=== PATIENT | male | born 1990 | race African-American/Black ===

== ENCOUNTER 2024-11-22 22:10 | Emergency (ER) | payer MEDICAID ==
[~2024-11-22] VITALS: Ht 165.1 cm; Wt 82.0 kg
[2024-11-22 22:40] VITALS: O2SAT 99
[2024-11-22 23:21] LABS: CLARITY URINE CLOUDY (CLEAR); COLOR URINE YELLOW (YELLOW); GLUCOSE URINE NEGATIVE (NEGATIVE); KETONES URINE NEGATIVE (NEGATIVE); LEUKOCYTE ESTERASE URINE 3+ (NEGATIVE); NITRITE URINE NEGATIVE (NEGATIVE); OCCULT BLOOD URINE 3+ (NEGATIVE); PH URINE 6.5 (4.5-8.0); PROTEIN URINE 3+ (NEGATIVE); SPECIFIC GRAVITY URINE 1.004 (1.005-1.030); UROBILINOGEN URINE 0.2 E.U./dL (0.2-1.0)
[2024-11-22 23:37] LABS: WBC URINE TNTC /hpf (0-2)
[2024-11-22 23:38] LABS: BACTERIA URINE 2+; SQUAMOUS EPITHELIAL CELL URINE NONE SEEN /lpf (RARE/1+)
[2024-11-23] MEDS ORDERED: CEPH500T MT (00:59)
[2024-11-23] MEDS: CEFTRIAXONE SODIUM 1G VIAL IM ONE (01:14)
[2024-11-23 01:20] VITALS: BP 143/82; PULSE 87; RESP 16; TEMP 36.8; O2SAT 99
== END 2024-11-23 01:30 | disposition home or self-care (01) ==
LOC: ER 22:10
DX: N39.0 Urinary tract infection, site not specified (principal); R30.0 Dysuria; R31.9 Hematuria, unspecified
CPT/HCPCS: 81003; 87086; 99283; 96372; J0696; Z7610 ×2

== ENCOUNTER 2024-11-25 10:05 | Inpatient (IN) | payer BC, MEDICAID ==
[~2024-11-25] VITALS: Ht 172.7 cm; Wt 89.4 kg
[~2024-11-25 10:05] MED LIST: CEPH500T MT
[2024-11-25 10:13] VITALS: O2SAT 97
[2024-11-25 10:37] LABS: HEMATOCRIT. 43.6 % (42.0-52.0); HEMOGLOBIN. 14.4 g/dL (14.0-18.0); MEAN PLATELET VOLUME 7.9 fl (7.4-10.4); PLATELET 184 x1000/uL (130-400); RED BLOOD CELL COUNT 5.72 mill/uL (4.7-6.1); RED CELL DISTRIBUTION WIDTH 14.2 % (11.6-14.6)
[2024-11-25] MEDS: ACETAMINOPHEN 500MG TABLET PO ONE (10:37)
[2024-11-25] MEDS: KETOROLAC 15MG/ML VIAL IM ONE (10:37)
[2024-11-25 11:00] LABS: CLARITY URINE CLEAR (CLEAR); COLOR URINE YELLOW (YELLOW); GLUCOSE URINE NEGATIVE (NEGATIVE); KETONES URINE NEGATIVE (NEGATIVE); LEUKOCYTE ESTERASE URINE 2+ (NEGATIVE); NITRITE URINE NEGATIVE (NEGATIVE); OCCULT BLOOD URINE NEGATIVE (NEGATIVE); PH URINE 6.5 (4.5-8.0); PROTEIN URINE NEGATIVE (NEGATIVE); SPECIFIC GRAVITY URINE 1.015 (1.005-1.030); UROBILINOGEN URINE 1.0 E.U./dL (0.2-1.0)
[2024-11-25 11:00] LABS: CREATININE 1.0 mg/dL (0.6-1.3); UREA NITROGEN BLOOD 6 mg/dL (9-23)
[2024-11-25 11:02] LABS: ASPARTATE AMINOTRANSFERASE 86 IU/L (<34); BILIRUBIN DIRECT 0.2 mg/dL (<=3.0); BILIRUBIN TOTAL 0.8 mg/dL (0.1-1.0); PROTEIN TOTAL 7.4 g/dL (6.0-8.3)
[2024-11-25 11:16] LABS: SQUAMOUS EPITHELIAL CELL URINE 2+ /lpf (RARE/1+)
[2024-11-25 11:17] LABS: WBC URINE TNTC /hpf (0-2)
[2024-11-25 11:18] LABS: RBC URINE 0-2 /hpf (0-2)
[2024-11-25 11:19] LABS: BACTERIA URINE 1+
[2024-11-25] MEDS: SODIUM CHLORIDE 0.9% (SEPSIS BOLUS) IV ONE (12:40)
[2024-11-25 12:44] LABS: INR 1.1
[2024-11-25] MEDS: CEFTRIAXONE 1GM/50ML 50 ML IV ONE (12:49)
[2024-11-25 15:00] VITALS: BP 129/69; PULSE 86; RESP 17; TEMP 36.5848
[2024-11-25 16:00] VITALS: BP 127/69; PULSE 85; RESP 16; TEMP 36.5; O2SAT 100
[2024-11-25] MEDS ORDERED: NALOXONE HCL 0.4MG/ML VIAL IV PRN (16:00)
[2024-11-25] MEDS ORDERED: ONDANSETRON HCL 4MG/2ML INJ IV PRN (16:00)
[2024-11-25] MEDS ORDERED: HYDROCODONE/ACETAMINOPHEN 5/325MG TABLET PO PRN (16:00)
[2024-11-25 20:00] VITALS: BP 122/74; PULSE 75; RESP 18; TEMP 36.6; O2SAT 100
[2024-11-26] VITALS: BP 134/68; PULSE 66; TEMP 36.6
[2024-11-26 04:00] VITALS: BP 112/65; PULSE 71; RESP 18; TEMP 36.6; O2SAT 99
[2024-11-26 07:20] LABS: BASOPHILS % 0.1 % (0.0-2.0); EOSINOPHILS % 1.5 % (0.0-5.0); HEMATOCRIT. 42.1 % (42.0-52.0); HEMOGLOBIN. 14.0 g/dL (14.0-18.0); LYMPHOCYTES % 21.3 % (20.0-50.0); MEAN PLATELET VOLUME 8.4 fl (7.4-10.4); MONOCYTES % 9.5 % (2.0-8.0); NEUTROPHILS % 67.6 % (40.0-76.0); PLATELET 188 x1000/uL (130-400); RED BLOOD CELL COUNT 5.47 mill/uL (4.7-6.1); RED CELL DISTRIBUTION WIDTH 14.4 % (11.6-14.6)
[2024-11-26 07:39] LABS: CREATININE 1.0 mg/dL (0.6-1.3); UREA NITROGEN BLOOD 7 mg/dL (9-23)
[2024-11-26 08:00] VITALS: BP 119/89; PULSE 69; RESP 20; TEMP 36.5; O2SAT 97
[2024-11-26] MEDS ORDERED: IOHEXOL-300 100 ML BOTTLE ONE (09:29)
[2024-11-26] MEDS ORDERED: LEVO750T68 MT (10:56)
[2024-11-26 11:44] LABS: BAND% 6.0 % (1.0-6.0); LYMPHOCYTES % MANUAL 10.0 % (20.0-50.0); MONOCYTES % MANUAL 2.0 % (2.0-8.0); NEUTROPHILS % MANUAL 82.0 % (45.0-75.0); PLATELET ESTIMATE NORMAL
[2024-11-26 12:00] VITALS: BP 119/86; PULSE 78; RESP 16; TEMP 36.9; O2SAT 100
[2024-11-26] MEDS ORDERED: CEFTRIAXONE 1GM/50ML 50 ML IV SCH (13:00)
[2024-11-26 14:09] VITALS: BP 119/79; PULSE 78; TEMP 98.4
== END 2024-11-26 14:54 | disposition home or self-care (01) | DRG 872 ==
LOC: ER 10:05 → 7EST 13:20 → EDBEDREQ 13:22 → EDBEDREQSVC 13:22 → ENRESERV 14:04
PROVIDERS: ADMIT Internal Medicine; ATTEND Internal Medicine
DX: A41.9 Sepsis, unspecified organism (principal); N39.0 Urinary tract infection, site not specified; N32.9 Bladder disorder, unspecified
CPT/HCPCS: 36415; 71045; 74176; 74177; 80048; 80076; 81003; 83605; 84145; 85025; 93005; 99285; J0696; J1885; J7030; Q9967

== ENCOUNTER 2024-12-04 08:09 | Emergency (ER) | payer BC ==
[~2024-12-04] VITALS: Ht 172.7 cm; Wt 88.0 kg
[~2024-12-04 08:09] MED LIST changes: -CEPH500T MT; +LEVO750T68 MT
[2024-12-04 08:16] VITALS: TEMP 36.8; O2SAT 99
[2024-12-04 08:50] LABS: CLARITY URINE CLEAR (CLEAR); COLOR URINE YELLOW (YELLOW); GLUCOSE URINE NEGATIVE (NEGATIVE); KETONES URINE NEGATIVE (NEGATIVE); LEUKOCYTE ESTERASE URINE NEGATIVE (NEGATIVE); NITRITE URINE NEGATIVE (NEGATIVE); OCCULT BLOOD URINE 2+ (NEGATIVE); PH URINE 5.5 (4.5-8.0); PROTEIN URINE NEGATIVE (NEGATIVE); SPECIFIC GRAVITY URINE 1.006 (1.005-1.030); UROBILINOGEN URINE 0.2 E.U./dL (0.2-1.0)
[2024-12-04] MEDS: MAGNESIUM/ALUMINUM HYDROXIDE/SIMETHICONE 30ML UDC PO ONE (09:00)
[2024-12-04] MEDS: FAMOTIDINE 20MG TABLET PO ONE (09:01)
[2024-12-04 09:05] LABS: BACTERIA URINE NONE SEEN; RBC URINE 0-2 /hpf (0-2); SQUAMOUS EPITHELIAL CELL URINE 1+ /lpf (RARE/1+); WBC URINE 0-2 /hpf (0-2); YEAST URINE NONE SEEN
[2024-12-04 09:15] LABS: BASOPHILS % 0.6 % (0.0-2.0); EOSINOPHILS % 1.2 % (0.0-5.0); HEMATOCRIT. 40.8 % (42.0-52.0); HEMOGLOBIN. 14.1 g/dL (14.0-18.0); LYMPHOCYTES % 26.5 % (20.0-50.0); MEAN PLATELET VOLUME 7.9 fl (7.4-10.4); MONOCYTES % 9.0 % (2.0-8.0); NEUTROPHILS % 62.7 % (40.0-76.0); PLATELET 230 x1000/uL (130-400); RED BLOOD CELL COUNT 5.39 mill/uL (4.7-6.1); RED CELL DISTRIBUTION WIDTH 14.2 % (11.6-14.6)
[2024-12-04 09:28] LABS: CREATININE 0.9 mg/dL (0.6-1.3); UREA NITROGEN BLOOD 7 mg/dL (9-23)
[2024-12-04 09:30] LABS: ASPARTATE AMINOTRANSFERASE 16 IU/L (<34); BILIRUBIN DIRECT 0.3 mg/dL (<=3.0); BILIRUBIN TOTAL 1.0 mg/dL (0.1-1.0); PROTEIN TOTAL 7.6 g/dL (6.0-8.3)
[2024-12-04] MEDS ORDERED: FAMO-134 MT (10:25)
[2024-12-04 10:29] VITALS: BP 116/75; PULSE 65; RESP 16; O2SAT 99
== END 2024-12-04 10:34 | disposition home or self-care (01) ==
LOC: ER 08:09
DX: N32.9 Bladder disorder, unspecified (principal); R74.01 Elevation of levels of liver transaminase levels
CPT/HCPCS: 36415; 74176; 80048; 80076; 81003; 85025; 99284